=== PATIENT | male | born 1965 | race Caucasian/White ===

== ENCOUNTER 2016-09-23 21:26 | Emergency (ER) | payer SELFPAY | END 2016-09-24 03:39 | disposition home or self-care (01) | LOC: ER1 21:26 | DX: S01.112A Laceration without foreign body of left eyelid and periocular area, initial encounter (principal); Y04.2XXA Assault by strike against or bumped into by another person, initial encounter; Y92.59 Other trade areas as the place of occurrence of the external cause | CPT/HCPCS: 12011; 70450; 99283 ==